=== PATIENT | male | born 1940 ===

== ENCOUNTER 2018-11-09 11:13 | Inpatient (IN) | payer MEDICARE, MEDICAID ==
[2018-11-09 12:40] LABS: BASO % 0.3 % (0.0-2.0); EOS % 0.4 % (0.0-4.0); HEMOGLOBIN 14.8 g/dL (12.0-18.0); LYMPH # 0.3 K/uL (1.0-4.3); LYMPH % 4.9 % (20.0-40.0); MEAN CELL VOLUME 94.5 fL (80.0-94.0); MEAN CORPUSCULAR HEMOGLOBIN 32.2 pg (27.0-31.0); MEAN CORPUSCULAR HGB CONC 34.1 g/dL (33.0-37.0); MEAN PLATELET VOLUME 9.1 fL (7.2-11.7); MONO # 0.4 K/uL (0.0-0.8); MONO % 6.6 % (0.0-10.0); NEUT # 5.5 K/uL (1.8-7.0); NEUT % 87.8 % (50.0-75.0); NRBC % 0.1 % (0.0-2.0); PLATELET COUNT 169 K/uL (130-400); RBC 4.58 Mil/uL (4.40-5.90); RED CELL DISTRIBUTION WIDTH 13.8 % (11.5-14.5); WHITE BLOOD COUNT 6.2 K/uL (4.8-10.8)
--- NOTE | 2018-11-09 12:47 | C.PDOC ---
History Of Present Illness 78 y/o male brought in by EMS accompanied by for evaluation of vomiting, dizziness, and abdominal pain that started this morning. Patient notes the vomitus has been green-colored, denies hematemesis. Otherwise he denies any diar durga, rectal bleeding, or urinary symptoms. states the patient appears somewhat pale and seems confused, though patient denies feeling confused. She denies jaundice. Both patient and are poor historians. On arrival to the ED patient is febrile with temp of 102. Patient noted to be coughing on exam. He denies any congestion, rhinorrhea, or other URI symptoms. Time Seen by Provider: 11/09/18 11:32 Chief Complaint (Nursing): Abdominal Pain Past Medical History Vital Signs: Last Vital Signs Temp 102.1 F H 11/09/18 11:28 Pulse 73 11/09/18 11:28 Resp 18 11/09/18 11:28 BP 142/61 11/09/18 11:28 Pulse Ox 91 L 11/09/18 11:28 Family History: States: No Known Family Hx - Social History Hx Alcohol Use: No Hx Substance Use: No - Immunization History Hx Tetanus Toxoid Vaccination: No Hx Influenza Vaccination: No Hx Pneumococcal Vaccination: No Review Of Systems Except As Marked, All Systems Reviewed And Found Negative. Constitutional: Positive for: Fever ENT: Negative for: Nose Congestion, Throat Pain Cardiovascular: Negative for: Chest Pain, Palpitations Respiratory: Positive for: Cough. Negative for: Shortness of Breath Gastrointestinal: Positive for: Nausea, Vomiting, Abdominal Pain. Negative for: Diarrhea, Hematemesis Genitourinary: Negative for: Dysuria, Hematuria Skin: Positive for: Other (Skin appears somewhat jaundiced though at bedside reports this is normal for patient). Negative for: Rash Neurological: Positive for: Dizziness. Negative for: Weakness, Numbness, Altered Mental Status, Headache Physical Exam - Physical Exam Appears: Non-toxic, No Acute Distress Skin: Warm, Jaundice (Skin appears somewhat jaundiced though at bedside reports this is normal for patient) Head: Atraumatic, Normacephalic Eye(s): bilateral: Normal Inspection, PERRL, EOMI Neck: Normal ROM Chest: Symmetrical Cardiovascular: Rhythm Regular, No Murmur Respiratory: No Accessory Muscle Use, Rhonchi (diffusely), No Wheezing, Other (no respiratory distress) Gastrointestinal/Abdominal: Bowel Sounds (normal), Soft, No Tenderness, No Guarding, No Rebound Back: Normal Inspection, No Vertebral Tenderness Extremity: Bilateral: Atraumatic, Normal ROM Pulses: Left Dorsalis Pedis: Normal, Right Dorsalis Pedis: Normal Neurological/Psych: Oriented x3, Normal Cognition, Normal Cranial Nerves, Other (No neuro deficit, Speaking in full sentences) ED Course And Treatment - Laboratory Results Result Diagrams: 11/12/18 07:04 11/12/18 07:04 O2 Sat by Pulse Oximetry: 91 (on RA) Pulse Ox Interpretation: Abnormal - Radiology CXR: Interpreted by Me CXR Interpretation: Yes: Infiltrates (Increased congestion vs infiltrate in the RLL) - CT Scan/US CT Abd/Pelvis Other Rad Studies (CT/US): Read By Radiologist, Radiology Report Reviewed CT/US Interpretation: Accession No. : [id number]. Patient Name / ID : GEORGIA ROBLES / [id number]. Exam Date : 11/09/2018 15:29:29 ( Approved ). Study Comment : Sex / Age : M / 78Y. Creator : Vaishali Myles. Dictator : Lincoln Roman MD. Animal Stunner : Head Athletic Trainer/Strength Coach : Lincoln Roman MD. Approver2 : Report Date : 11/09/2018 15:51:38. My Comment : . Date of service: 11/09/2018. PROCEDURE: CT Abdomen and Pelvis . HISTORY: Diffuse abdominal pain, vomiting, fever. COMPARISON: None. TECHNIQUE: Contiguous helical/transaxial sections of the abdomen pelvis performed following intravenous injection of approximately 100 cc Visipaque 320 contrast material. Additional 2D sagittal and coronal reformats generated. Note that the patient felt ill following injection and rapid response team apparently called and tended to-stabilized. The study is is limited in terms of contrast opacification where most of the intravascular contrast enhancement has washed out. Kidneys demonstrate excretory phase of excretion.. Radiation dose: Total exam DLP = 438.4 mGy-cm. This CT exam was performed using one or more of the following dose reduction techniques: Automated exposure control, adjustment of the mA and/or kV according to patient size, and/or use of iterative re construction technique. FINDINGS: LOWER THORAX: There are mild pleural thickening changes or scarring both lung bases along with mild dependent/passive type atelectasis. Linear areas of scarring are also felt to be present in the lung bases including the middle lobe and lingular regions. Mild thickening of the inferior margin of the left major fissure. No evidence of basilar pneumothorax. Heart size is within range of normal. No significant pericardial effusion. Questionable trace effusion versus minimal pericardial granulation tissue. There is a small hiatal hernia with slight wall thickening of distal esophagus likely due to protrusion of gastric mucosa. Possibility of esophagit is not excluded. LIVER: Liver exhibits normal size. No obvious hepatic mass collection or calcification. GALLBLADDER AND BILE DUCTS: Cholelithiasis. PANCREAS: Pancreas appears slightly atrophic and fatty replaced. No obvious pancreatic masses collections or calcifications. No significant pancreatic ductal dilatation identified. SPLEEN: Unremarkable. No splenomegaly. ADRENALS: Mildly enlarged hypoplastic appearing adrenal glands. KIDNEYS AND URETERS: Demonstrate expiratory phase of excretion with contrast enhancement of the calices and renal pelves as well as ureters... Contrast is rather dense due to excretion resulting in streak and beam hardening artifact obscuring fine soft tissue detail. No definitive evidence of obvious renal mass or collection. No evidence of obstructing nephrolithiasis so far as can be determined. BLADDER: Urinary bladder is incompletely distended which in part accounts for thick- walled appearance. Muscular hypertrophy presumably contributes. Correlation with urinalysis to exclude cystitis or other intrinsic/invasive wall lesion. REPRODUCTIVE: Prostate gland appears enlarged measuring approximately 4.8 cm in transverse dimension. Findings likely due to BPH however correlation with PSA recommended. APPENDIX: Unremarkable. BOWEL: Evaluation of the bowel is limited due to the lack of oral contrast material. Stomach is incompletely distended with thick-walled appearance. Visualized loops of small bowel exhibit normal contour and caliber. No evidence of acute mechanical small bowel obstruction. Stool and air seen throughout the large bowel. There are scattered multiple colonic diverticula seen along the descending and sigmoid colon. No definitive radiographic evidence of acute diverticulitis. PERITONEUM: Unremarkable. No fluid collection. No free air. LYMPH NODES: Unremarkable. No enlarged lymph nodes. VASCULATURE: Unremarkable. No aortic aneurysm. Minimal aortic atherosclerotic calcification or mural plaque present. BONES: Mild multilevel degenerative spondylosis of the lower thoracic and lumbar spine. No acute compression fractures no retropulsed fragments. OTHER FINDINGS: None. IMPRESSION: Limited study due to delayed scan time following injection as patient became ill immediately following injection and rapid response team was called and tended to -stabilized patient. There appears to be some mild pleural thickening and chronic scarring changes both lung bases as above. Cholelithiasis. Diverticulosis without radiographic evidence of acute diverticulitis. Mildly enlarged hypoplastic appearing adrenal glands. Medical Decision Making Medical Decision Making: Impression: 78 year old with vomiting, abdominal pain, cough, fever. Temp is 102 on arrival. O2sat 91% on RA. Will give antipyretic and place patient on 2L O2 via nasal cannula. Initial Plan: - VBG - CMP - CK-MB - Lipase - Magnesium - Phosphorous - CBC - PTT/PT - Blood culture - Urine culture - UA - Flu swab - Chest x-ray - IV fluids infusing - 4 mg IV Zofran - 650 mg PO Tylenol 13:05 Labs reviewed, No WBC elevation or left shift. CXR: Increased congestion vs infiltrate in the RLL Will obtain CT Abdomen/Pelvis for further evaluation. CT scan ordered with PO& IV contrast. However, patient vomited the PO contrast. Will can with IV contrast only. 16:00 CT reviewed, report shows no acute findings. Patient continues to actively vomit in the ED. Case discussed with Dr. Montgomery, will admit patient to medical service for intractable vomiting and viral illness. Disposition Counseled Patient/Family Regarding: Studies Performed, Diagnosis - Disposition Disposition: HOSPITALIZED Disposition Time: 17:21 Condition: STABLE - Clinical Impression Clinical Impression: Intractable vomiting, Viral illness - PA / CONCRETE BLOCK LAYER / Resident Statement MD/DO has reviewed & agrees with the documentation as recorded. - Scribe Statement The provider has reviewed the documentation as recorded by the Elizabeth Ceballos All medical record entries made by the Umeshibkarly were at my direction and personally dictated by me. I have reviewed the chart and agree that the record accurately reflects my personal performance of the history, physical exam, medical decision making, and the department course for this patient. I have also personally directed, reviewed, and agree with the discharge instructions and disposition.
[2018-11-09 12:50] LABS: ALB/GLOB RATIO 1.4 (1.0-2.1); ALBUMIN 4.5 g/dL (3.5-5.0); ALT/SGPT 19 U/L (21-72); AST/SGOT 25 U/L (17-59); BLOOD UREA NITROGEN 14 mg/dL (9-20); CALCIUM 9.1 mg/dl (8.6-10.4); GFR NON-AFRICAN AMERICAN > 60; LIPASE 64 U/L (23-300)
[2018-11-09 12:52] LABS: INR 1.2; PROTHROMBIN TIME 12.6 SECONDS (9.7-12.2)
[2018-11-09 12:59] LABS: CK-MB 0.39 ng/mL (0.0-3.38)
[2018-11-09 13:00] LABS: VENOUS BLOOD GAS BASE EXCESS 1.7 mmol/L (0.0-2.0); VENOUS BLOOD GAS PCO2 42 mmHg (40-60); VENOUS BLOOD GAS PO2 30 mm/Hg (30-55); VENOUS BLOOD PH 7.41 (7.32-7.43)
[2018-11-09 13:09] LABS: BANDS 2 % (0-2); BASOPHIL 1 % (0-2); LYMPHOCYTE 11 % (20-40); MONOCYTE 6 % (0-10); NEUTROPHIL 80 % (50-75); PLATELET ESTIMATE NORMAL (NORMAL); TOTAL CELLS COUNTED 100
[2018-11-09] MEDS ORDERED: Sodium Chloride 0.9% 500 ML IV ONE (13:14)
--- NOTE | 2018-11-09 13:17 | RAD ---
Date of service: 11/09/2018 PROCEDURE: CHEST RADIOGRAPH, 1 VIEW HISTORY: SOB, fever, cough COMPARISON: None available. FINDINGS: LUNGS: The lungs are well inflated. There is mild pulmonary venous congestion. PLEURA: No pneumothorax or pleural effusion. CARDIOVASCULAR: There is mild cardiomegaly. No aortic atherosclerotic calcifications present. OSSEOUS STRUCTURES: Within normal limits for the patient's age. VISUALIZED UPPER ABDOMEN: Normal. OTHER FINDINGS: None. IMPRESSION: No active pulmonary disease. Mild cardiomegaly and pulmonary venous congestion.
[2018-11-09] MEDS ORDERED: Sodium Chloride 0.9% 1,000 ML ONE (13:20)
[2018-11-09 14:01] LABS: URINE BILIRUBIN NEGATIVE (NEGATIVE); URINE BLOOD NEGATIVE (NEGATIVE); URINE CLARITY Clear (Clear); URINE COLOR Yellow (YELLOW); URINE GLUCOSE (UA) NORMAL (Normal); URINE LEUKOCYTE ESTERASE NEG Leu/uL (Negative); URINE PROTEIN 1+ mg/dL (NEGATIVE); URINE UROBILINOGEN NORMAL mg/dL (0.2-1.0)
--- NOTE | 2018-11-09 15:54 | PCM.RRT ---
SENIOR UNIX ADMINISTRATOR Nurses Assessment - Situation Date: 11/09/18 Time SENIOR UNIX ADMINISTRATOR was called: 15:32 SENIOR UNIX ADMINISTRATOR Responder Arrival Time:: 15:35 SENIOR UNIX ADMINISTRATOR Location:: CT scan Room Number: 2 SENIOR UNIX ADMINISTRATOR Called By: RN - IV IV Inserted during SENIOR UNIX ADMINISTRATOR?: No - Respiratory SENIOR UNIX ADMINISTRATOR Delivery Method: Nasal Cannula @L/min (2L) - Recommendations 5) SENIOR UNIX ADMINISTRATOR Level of Care Recommendations: Remain in current setting I.Reason for SENIOR UNIX ADMINISTRATOR - A) Acute Change in Patient: (Select all that apply): Staff member or family is worried about patient Subjective: Rapid response was called to cat scan room 2 at 15:32 to a patient having a possible witnessed seizure activity. Patient was sent from ED for an abdominal CT with contrast. RN reports the patient received IV contrast a few minutes prior to the episode. At the time, patient was feeling nauseous and feeling warm . Patient's seizure like activity lasted about 5 seconds and it resolved without medical intervention. Patient is currently resting on CAT scan machine in no distress, but does complains of mild nausea. He denies having tongue biting, fever, chills headache, shortness of breath, chest pain, urinary or fecal incontinence. Vitals at the end of the event: 145/59, 63bpm, O2 94% at 2L NC - Neurological Status (Select all that apply): Alert, Responsive, Oriented, Verbal, Follows Commands - Respiratory Oxygen Delivery Method: Nasal Cannula @L/min - Constitutional Appears: Well, No Acute Distress - Head Head Exam: ATRAUMATIC, NORMAL INSPECTION - Eyes Eye Exam: absent: Normal appearance (right eye cataract) - Respiratory Exam Respiratory Exam: Clear to Ausculation Bilateral, NORMAL BREATHING PATTERN. absent: Wheezes, Respiratory Distress - Cardiovascular Exam Cardiovascular Exam: REGULAR RHYTHM, +S1, +S2 - GI/Abdominal Exam GI & Abdominal Exam: Soft, Normal Bowel Sounds Additional comments: no signs of tongue biting in oral cavity, no erythema appreciated in the pharynx - Neurological Exam Neurological Exam: Alert, Awake, Oriented x3 - Extremities Exam Extremities Exam: Full ROM, Normal Capillary Refill, Normal Inspection Plan - Assessment of Findings&Treatment Plan Remain in current setting complete CT scan Return to ED for further management
[2018-11-09] MEDS ORDERED: Piperacillin/Tazobact 3.375 gm 100 ML IV STA (16:14)
[2018-11-09] MEDS ORDERED: Vancomycin 1 GM 1 GM/250 ML BAG IV STA (16:14)
[2018-11-09 16:34] LABS: BASO % 0.3 % (0.0-2.0); EOS % 0.1 % (0.0-4.0); HEMOGLOBIN 14.2 g/dL (12.0-18.0); LYMPH # 0.5 K/uL (1.0-4.3); LYMPH % 6.1 % (20.0-40.0); MEAN CELL VOLUME 93.6 fL (80.0-94.0); MEAN CORPUSCULAR HEMOGLOBIN 32.1 pg (27.0-31.0); MEAN CORPUSCULAR HGB CONC 34.3 g/dL (33.0-37.0); MEAN PLATELET VOLUME 8.6 fL (7.2-11.7); MONO # 0.7 K/uL (0.0-0.8); MONO % 9.2 % (0.0-10.0); NEUT # 6.4 K/uL (1.8-7.0); NEUT % 84.3 % (50.0-75.0); RBC 4.41 Mil/uL (4.40-5.90); RED CELL DISTRIBUTION WIDTH 14.2 % (11.5-14.5); WHITE BLOOD COUNT 7.6 K/uL (4.8-10.8)
--- NOTE | 2018-11-09 16:34 | CT ---
Date of service: 11/09/2018 PROCEDURE: CT Abdomen and Pelvis . HISTORY: Diffuse abdominal pain, vomiting, fever COMPARISON: None. TECHNIQUE: Contiguous helical/transaxial sections of the abdomen pelvis performed following intravenous injection of approximately 100 cc Visipaque 320 contrast material. Additional 2D sagittal and coronal reformats generated. Note that the patient felt ill following injection and rapid response team apparently called and tended to-stabilized. The study is is limited in terms of contrast opacification where most of the intravascular contrast enhancement has washed out. Kidneys demonstrate excretory phase of excretion.. Radiation dose: Total exam DLP = 438.4 mGy-cm. This CT exam was performed using one or more of the following dose reduction techniques: Automated exposure control, adjustment of the mA and/or kV according to patient size, and/or use of iterative reconstruction technique. FINDINGS: LOWER THORAX: There are mild pleural thickening changes or scarring both lung bases along with mild dependent/passive type atelectasis. Linear areas of scarring are also felt to be present in the lung bases including the middle lobe and lingular regions. Mild thickening of the inferior margin of the left major fissure. No evidence of basilar pneumothorax. Heart size is within range of normal. No significant pericardial effusion. Questionable trace effusion versus minimal pericardial granulation tissue. There is a small hiatal hernia with slight wall thickening of distal esophagus likely due to protrusion of gastric mucosa. Possibility of esophagitis not excluded. LIVER: Liver exhibits normal size. No obvious hepatic mass collection or calcification. GALLBLADDER AND BILE DUCTS: Cholelithiasis. PANCREAS: Pancreas appears slightly atrophic and fatty replaced. No obvious pancreatic masses collections or calcifications. No significant pancreatic ductal dilatation identified. SPLEEN: Unremarkable. No splenomegaly. ADRENALS: Mildly enlarged hypoplastic appearing adrenal glands. KIDNEYS AND URETERS: Demonstrate expiratory phase of excretion with contrast enhancement of the calices and renal pelves as well as ureters... Contrast is rather dense due to excretion resulting in streak and beam hardening artifact obscuring fine soft tissue detail. No definitive evidence of obvious renal mass or collection. No evidence of obstructing nephrolithiasis so far as can be determined. BLADDER: Urinary bladder is incompletely distended which in part accounts for thick-walled appearance. Muscular hypertrophy presumably contributes. Correlation with urinalysis to exclude cystitis or other intrinsic/invasive wall lesion. REPRODUCTIVE: Prostate gland appears enlarged measuring approximately 4.8 cm in transverse dimension. Findings likely due to BPH however correlation with PSA recommended. APPENDIX: Unremarkable. BOWEL: Evaluation of the bowel is limited due to the lack of oral contrast material. Stomach is incompletely distended with thick-walled appearance. Visualized loops of small bowel exhibit normal contour and caliber. No evidence of acute mechanical small bowel obstruction. Stool and air seen throughout the large bowel. There are scattered multiple colonic diverticula seen along the descending and sigmoid colon. No definitive radiographic evidence of acute diverticulitis. PERITONEUM: Unremarkable. No fluid collection. No free air. LYMPH NODES: Unremarkable. No enlarged lymph nodes. VASCULATURE: Unremarkable. No aortic aneurysm. Minimal aortic atherosclerotic calcification or mural plaque present. BONES: Mild multilevel degenerative spondylosis of the lower thoracic and lumbar spine. No acute compression fractures no retropulsed fragments. OTHER FINDINGS: None. IMPRESSION: Limited study due to delayed scan time following injection as patient became ill immediately following injection and rapid response team was called and tended to -stabilized patient. There appears to be some mild pleural thickening and chronic scarring changes both lung bases as above. Cholelithiasis. Diverticulosis without radiographic evidence of acute diverticulitis. Mildly enlarged hypoplastic appearing adrenal glands.
[2018-11-09 16:35] LABS: VENOUS BLOOD GAS BASE EXCESS 1.3 mmol/L (0.0-2.0); VENOUS BLOOD GAS PCO2 36 mmHg (40-60); VENOUS BLOOD GAS PO2 67 mm/Hg (30-55); VENOUS BLOOD PH 7.45 (7.32-7.43)
[2018-11-09] MEDS ORDERED: Piperacillin/Tazobact 3.375 gm 100 ML IVPB ONE (17:07)
[2018-11-09] MEDS ORDERED: Vancomycin 1 GM 1 GM/250 ML BAG IVPB ONE ×2 (17:47→17:50)
[2018-11-09 21:27] VITALS: RESP 20
[2018-11-09] MEDS ORDERED: Albuterol-Ipratrop 3 mg / 0.5 (3 ml) UD INH PRN (21:36)
[2018-11-09] MEDS: Dextrose 5%/0.45% NS 1,000 ML IV SCH (22:07)
[2018-11-10] MEDS ORDERED: Piperacill/Tazo 3.375gm in Dex 3.375 GM/50 ML BAG IVPB SCH
[2018-11-10] MEDS: Piperacill/Tazo 3.375gm in Dex 3.375 GM/50 ML BAG IVPB SCH ×4 (00:49→21:06)
[2018-11-10] MEDS: guaiFENesin DM 100 mg-10 mg/5 ml UD PO PRN ×2 (05:28→16:56)
[2018-11-10 07:26] LABS: BASO % 0.3 % (0.0-2.0); EOS % 0.2 % (0.0-4.0); HEMOGLOBIN 14.3 g/dL (12.0-18.0); LYMPH # 0.9 K/uL (1.0-4.3); LYMPH % 16.4 % (20.0-40.0); MEAN CELL VOLUME 93.8 fL (80.0-94.0); MEAN CORPUSCULAR HEMOGLOBIN 32.9 pg (27.0-31.0); MEAN CORPUSCULAR HGB CONC 35.1 g/dL (33.0-37.0); MONO # 0.6 K/uL (0.0-0.8); MONO % 10.5 % (0.0-10.0); NEUT # 3.9 K/uL (1.8-7.0); NEUT % 72.6 % (50.0-75.0); RBC 4.34 Mil/uL (4.40-5.90); RED CELL DISTRIBUTION WIDTH 14.3 % (11.5-14.5); WHITE BLOOD COUNT 5.4 K/uL (4.8-10.8)
[2018-11-10 07:54] LABS: ALB/GLOB RATIO 1.4 (1.0-2.1); ALT/SGPT 27 U/L (21-72); AST/SGOT 40 U/L (17-59); BLOOD UREA NITROGEN 13 mg/dL (9-20); CALCIUM 8.3 mg/dl (8.6-10.4); GFR NON-AFRICAN AMERICAN 59
[2018-11-10] MEDS: Dextrose 5%/0.45% NS 1,000 ML IV SCH ×2 (07:59→17:01)
[2018-11-10] MEDS: Enoxaparin 40 mg Syringe SC SCH (09:21)
[2018-11-11] MEDS: guaiFENesin DM 100 mg-10 mg/5 ml UD PO PRN
[2018-11-11] MEDS: Dextrose 5%/0.45% NS 1,000 ML IV SCH ×3 (03:46→23:27)
[2018-11-11] MEDS: Piperacill/Tazo 3.375gm in Dex 3.375 GM/50 ML BAG IVPB SCH ×3 (05:45→21:45)
[2018-11-11 07:39] LABS: BASO % 0.2 % (0.0-2.0); EOS % 0.3 % (0.0-4.0); HEMOGLOBIN 13.6 g/dL (12.0-18.0); LYMPH # 0.9 K/uL (1.0-4.3); LYMPH % 19.1 % (20.0-40.0); MEAN CELL VOLUME 92.8 fL (80.0-94.0); MEAN CORPUSCULAR HEMOGLOBIN 33.1 pg (27.0-31.0); MEAN CORPUSCULAR HGB CONC 35.6 g/dL (33.0-37.0); MEAN PLATELET VOLUME 9.2 fL (7.2-11.7); MONO # 0.5 K/uL (0.0-0.8); MONO % 11.1 % (0.0-10.0); NEUT # 3.4 K/uL (1.8-7.0); NEUT % 69.3 % (50.0-75.0); RBC 4.12 Mil/uL (4.40-5.90); RED CELL DISTRIBUTION WIDTH 13.9 % (11.5-14.5); WHITE BLOOD COUNT 4.9 K/uL (4.8-10.8)
[2018-11-11 08:00] LABS: ALB/GLOB RATIO 1.2 (1.0-2.1); ALBUMIN 3.7 g/dL (3.5-5.0); ALT/SGPT 22 U/L (21-72); AST/SGOT 50 U/L (17-59); BLOOD UREA NITROGEN 8 mg/dL (9-20); CALCIUM 8.1 mg/dl (8.6-10.4); GFR NON-AFRICAN AMERICAN > 60
[2018-11-11] MEDS: Enoxaparin 40 mg Syringe SC SCH (09:09)
--- NOTE | 2018-11-11 16:08 | CP.PCM.CON ---
History of Present Illness - History of Present Illness History of Present Illness: 78 y/o male brought in by EMS accompanied by for evaluation of vomiting, dizziness, and abdominal pain On arrival to the ED patient is febrile with temp of 102. ID consulted for antibiotic management patient is awake alert abd pain less worse when coughing temps less today Review of Systems - Constitutional Constitutional: As Per HPI, Chills, Fever - EENT Eyes: absent: As Per HPI, Blind Spots, Blurred Vision, Change in Vision, Decreased Night Vision, Diplopia, Discharge, Dry Eye, Exophthalmos, Floaters, I rritation, Itchy Eyes, Loss of Peripheral Vision, Pain, Photophobia, Requires Corrective Lenses, Sees Flashes, Spots in Vision, Tunnel Vision, Other Visual Disturbances, Loss of Vision, Other Ears: absent: As Per HPI, Decreased Hearing, Ear Discharge, Ear Pain, Tinnitus, Abnormal Hearing, Disequilibrium, Dizziness, Other Nose/Mouth/Throat: absent: As Per HPI, Epistaxis, Nasal Congestion, Nasal Discharge, Nasal Obstruction, Nasal Trauma, Nose Pain, Post Nasal Drip, Sinus Pain, Sinus Pressure, Bleeding Gums, Change in Voice, Dental Pain, Dry Mouth, Dysphagia, Halitosis, Hoarsness, Lip Swelling, Mouth Lesions, Mouth Pain, Odynophagia, Sore Throat, Throat Swelling, Tongue Swelling, Facial Pain, Neck Pain, Neck Mass, Other - Cardiovascular Cardiovascular: absent: As Per HPI, Acrocyanosis, Chest Pain, Chest Pain at Rest, Chest Pain with Activity, Claudication, Diaphoresis, Dyspnea, Dyspnea on Exertion, Edema, Irregular Heart Rhythm, Pain Radiating to Arm/Neck/Jaw, Leg Edema, Leg Ulcers, Lightheadedness, Orthopnea, Palpitations, Paroxysmal Nocturnal Dyspnea, Pedal Edema, Radiating Pain, Rapid Heart Rate, Slow Heart Rate, Syncope, Other - Respiratory Respiratory: Cough. absent: Hemoptysis - Gastrointestinal Gastrointestinal: As Per HPI, Abdominal Pain - Genitourinary Genitourinary: absent: As Per HPI, Change in Urinary Stream, Difficulty Urinating, Dysuria, Flank Pain, Hematuria, Pyuria, Nocturia, Urinary Incontinence, Urinary Frequency, Urinary Hesitance, Urinary Urgency, Voiding Freq/Small Amts, Freq UTI, Hx Renal/Bladder Calculi, Hx /Renal Surgery, Bladder Distension, Other - Musculoskeletal Musculoskeletal: absent: As Per HPI, Abnormal Gait, Arthralgias, Atrophy, Back Pain, Deformity, Joint Swelling, Limited Range of Motion, Loss of Height, Muscle Cramps, Muscle Weakness, Myalgias, Neck Pain, Numbness, Radiating Pain into Li mb, Stiffness, Tingling, Other - Integumentary Integumentary: absent: As Per HPI, Acne, Alopecia, Bleeding Lesions, Change in Hair, Change in Nails, Change in Pigmentation, Changing Lesions, Dry Skin, Erythema, Furuncle, Hirsutism, Lesions, New Lesions, Non-Healing Lesions, Photosensitivity, Pruritus, Rash, Skin Pain, Skin Ulcer, Sores, Striae, Swelling, Unusual Bruising, Wounds, Jaundice, Other - Neurological Neurological: absent: As Per HPI, Abnormal Gait, Abnormal Hearing, Abnormal Movements, Abnormal Speech, Behavioral Changes, Burning Sensations, Confusion, Convulsions, Disequilibrium, Dizziness, Numbness, Focal Weakness, Frequent Falls, Headaches, Lack of Coordination, Loss of Vision, Memory Loss, Paresthes ias, Radicular Pain, Restless Legs, Sensory Deficit, Syncope, Tingling, Tremor, Vertigo, Weakness, Other Visual Disturbances, Other - Psychiatric Psychiatric: absent: As Per HPI, Abnormal Sleep Pattern, Anhedonia, Anxiety, Auditory Hallucinations, Behavioral Changes, Change in Appetite, Change in Libido, Confusion, Depression, Difficulty Concentrating, Hallucinations, Homicidal Ideation, Hopelessness, Irritability, Memory Loss, Mood Swings, Panic Attacks, Paranoia, Suicidal Ideation, Visual Hallucinations, Tactile Hallucinations, Other - Endocrine Endocrine: absent: As Per HPI, Change in Body Appearance, Change in Libido, Cold Intolorance, Deepening of Voice, Excessive Sweating, Fatigue, Flushing, Heat Intolorance, Increase in Ring/Shoe/Hat Size, Palpitations, Polydipsia, Polyphagia, Polyuria, Other - Hematologic/Lymphatic Hematologic: absent: As Per HPI, Easy Bleeding, Easy Bruising, Lymphadenopathy, Other Past Patient History - Past Medical History & Family History Past Medical History?: Yes - Past Social History Smoking Status: Never Smoked - CARDIAC Hx Hypotension: Yes - HEENT Hx Blind: Yes (Rt. eye) - MUSCULOSKELETAL/RHEUMATOLOGICAL Hx Falls: Yes - PSYCHIATRIC Hx Substance Use: No - SURGICAL HISTORY Hx Surgeries: No - ANESTHESIA Hx Anesthesia: No Hx Anesthesia Reactions: No Meds Allergies/Adverse Reactions: Allergies Allergy/AdvReac Type Severity Reaction Status Date / Time No Known Allergies Allergy Verified 11/09/18 12:11 - Medications Medications: Current Medications Acetaminophen (Tylenol 325mg Tab) 650 mg PO Q4 PRN PRN Reason: Fever >100.4 F Last Admin: 11/10/18 15:14 Dose: 650 mg Albuterol/Ipratropium (Duoneb 3 Mg/0.5 Mg (3 Ml) Ud) 3 ml INH RQ4 PRN PRN Reason: Cough and congestion Enoxaparin Sodium (Lovenox) 40 mg SC DAILY [facility] Last Admin: 11/11/18 09:09 Dose: 40 mg Guaifenesin/Dextromethorphan (Robitussin Dm) 5 ml PO Q4H PRN PRN Reason: Cough Last Admin: 11/11/18 00:00 Dose: 5 ml Dextrose/Sodium Chloride (Dextrose 5%/0.45% Ns 1000 Ml) 1,000 mls @ 100 mls/hr IV .Q10H [facility] Last Admin: 11/11/18 13:15 Dose: Not Given Piperacillin Sod/Tazobactam Sod (Zosyn 3.375 Gm Iv Premix) 3.375 gm in 50 mls @ 100 mls/hr IVPB Q8 [facility]; Protocol Last Admin: 11/11/18 14:17 Dose: 100 mls/hr Ondansetron HCl (Zofran Inj) 4 mg IVP Q6 PRN PRN Reason: Nausea/Vomiting Pantoprazole Sodium (Protonix Inj) 40 mg IVP DAILY [facility] Last Admin: 11/11/18 09:09 Dose: 40 mg Pneumococcal Polyvalent Vaccine (Pneumovax 23 Vaccine) 0.5 ml IM .ONCE ONE Stop: 11/12/18 10:01 Physical Exam - Constitutional Appears: Non-toxic, No Acute Distress, Chronically Ill - Head Exam Head Exam: NORMOCEPHALIC - Eye Exam Eye Exam: absent: Scleral icterus - ENT Exam ENT Exam: Mucous Membranes Dry, Normal External Ear Exam - Neck Exam Neck exam: Negative for: Lymphadenopathy - Respiratory Exam Respiratory Exam: Decreased Breath Sounds, Rhonchi - Cardiovascular Exam Cardiovascular Exam: REGULAR RHYTHM, +S1, +S2 - GI/Abdominal Exam GI & Abdominal Exam: Diminished Bowel Sounds, Soft. absent: Tenderness - Rectal Exam Rectal Exam: Deferred - Exam Exam: NORMAL INSPECTION - Extremities Exam Extremities exam: Positive for: pedal pulses present. Negative for: calf tenderness, pedal edema, tenderness - Back Exam Back exam: absent: CVA tenderness (L), CVA tenderness (R), paraspinal tenderness - Neurological Exam Neurological exam: Alert, CN II-XII Intact, Oriented x3, Reflexes Normal - Psychiatric Exam Psychiatric exam: Normal Mood - Skin Skin Exam: Dry Results - Vital Signs Recent Vital Signs: Last Vital Signs Temp 98.2 F 11/11/18 07:00 Pulse 60 11/11/18 07:00 Resp 20 11/11/18 07:00 BP 149/69 11/11/18 07:00 Pulse Ox 95 11/11/18 07:00 - Labs Result Diagrams: 11/11/18 07:19 11/11/18 07:19 Labs: Laboratory Results - last 24 hr 11/11/18 11/11/18 07:19 07:19 WBC 4.9 RBC 4.12 L Hgb 13.6 Hct 38.2 MCV 92.8 MCH 33.1 H MCHC 35.6 RDW 13.9 Plt Count 149 MPV 9.2 Neut % (Auto) 69.3 Lymph % (Auto) 19.1 L Weston % (Auto) 11.1 H Eos % (Auto) 0.3 Baso % (Auto) 0.2 Neut # (Auto) 3.4 Lymph # (Auto) 0.9 L Weston # (Auto) 0.5 Eos # (Auto) 0.0 Baso # (Auto) 0.0 Sodium 136 Potassium 3.6 Chloride 101 Carbon Dioxide 27 Anion Gap 12 BUN 8 L Creatinine 1.0 Est GFR ( Amer) > 60 Est GFR (Non-Af Amer) > 60 Random Glucose 116 H Calcium 8.1 L Total Bilirubin 0.9 AST 50 ALT 22 Alkaline Phosphatase 58 Total Protein 6.6 Albumin 3.7 Globulin 3.0 Albumin/Globulin Ratio 1.2 Assessment & Plan (1) Acute febrile illness Status: Acute (2) Abdominal pain Status: Acute (3) Fever Status: Acute - Assessment and Plan (Free Text) Assessment: await cultures will repeat flu test cont iv antibiotics
[2018-11-11] MEDS: Metoprolol Succinate 50 mg XL Tab PO SCH (18:46)
[2018-11-12] MEDS: Dextrose 5%/0.45% NS 1,000 ML IV SCH (03:00)
[2018-11-12] MEDS: Piperacill/Tazo 3.375gm in Dex 3.375 GM/50 ML BAG IVPB SCH ×2 (05:23→13:33)
[2018-11-12 07:38] LABS: MONO # 0.5 K/uL (0.0-0.8); NEUT # 2.2 K/uL (1.8-7.0); NEUT % 55.8 % (50.0-75.0); NRBC % 0.1 % (0.0-2.0)
[2018-11-12 07:46] LABS: ALB/GLOB RATIO 1.3 (1.0-2.1); ALBUMIN 3.7 g/dL (3.5-5.0); ALT/SGPT 25 U/L (21-72); AST/SGOT 51 U/L (17-59); BLOOD UREA NITROGEN 6 mg/dL (9-20); CALCIUM 8.3 mg/dl (8.6-10.4); GFR NON-AFRICAN AMERICAN > 60
[2018-11-12 08:04] VITALS: BP 135/82; PULSE 60; TEMP 98.4
[2018-11-12 08:11] LABS: BASO % 0.3 % (0.0-2.0); EOS % 0.5 % (0.0-4.0); HEMOGLOBIN 13.2 g/dL (12.0-18.0); LYMPH # 1.3 K/uL (1.0-4.3); LYMPH % 31.7 % (20.0-40.0); MEAN CELL VOLUME 91.7 fL (80.0-94.0); MEAN CORPUSCULAR HEMOGLOBIN 32.9 pg (27.0-31.0); MEAN CORPUSCULAR HGB CONC 35.9 g/dL (33.0-37.0); MEAN PLATELET VOLUME 8.9 fL (7.2-11.7); MONO % 11.7 % (0.0-10.0); RED CELL DISTRIBUTION WIDTH 13.4 % (11.5-14.5)
--- NOTE | 2018-11-12 08:31 | HP ---
HISTORY OF PRESENT ILLNESS: Mr. Yvon Myles is an 78-year-old male with complaint of nausea and vomiting. The patient came to the ER, advised admission. PHYSICAL EXAMINATION: GENERAL: The patient is awake, alert, and oriented. VITAL SIGNS: Temperature 98 and pulse 90. HEENT: Within normal limits. NECK: Supple. CHEST: Symmetrical. HEART: Regular. ABDOMEN: Soft. EXTREMITIES: No edema. IMPRESSION: The patient suffers from intractable vomiting. The patient is to get bedrest. Supportive care. Joshua Montgomery MD
[2018-11-12] MEDS: Metoprolol Succinate 50 mg XL Tab PO SCH (09:16)
[2018-11-12] MEDS: guaiFENesin DM 100 mg-10 mg/5 ml UD PO PRN (09:16)
[2018-11-12] MEDS: Enoxaparin 40 mg Syringe SC SCH (09:18)
[2018-11-12] MEDS ORDERED: Pneumococcal 23-Valent Vaccine IM ONE (10:00)
--- NOTE | 2018-11-12 12:16 | CP.PCM.PN ---
Subjective - Date & Time of Evaluation Date of Evaluation: 11/12/18 Time of Evaluation: 09:00 - Subjective Subjective: no fever less pain influenZa neg Objective - Vital Signs/Intake and Output Vital Signs (last 24 hours): Temp Pulse Resp BP Pulse Ox 98.4 F 60 20 135/82 96 11/12/18 08:02 11/12/18 08:02 11/12/18 08:02 11/12/18 08:02 11/12/18 08:02 Intake and Output: 11/12/18 11/12/18 06:59 18:59 Intake Total 1150 Balance 1150 - Medications Medications: Current Medications Acetaminophen (Tylenol 325mg Tab) 650 mg PO Q4 PRN PRN Reason: Fever >100.4 F Last Admin: 11/10/18 15:14 Dose: 650 mg Albuterol/Ipratropium (Duoneb 3 Mg/0.5 Mg (3 Ml) Ud) 3 ml INH RQ4 PRN PRN Reason: Cough and congestion Enoxaparin Sodium (Lovenox) 40 mg SC DAILY [facility] Last Admin: 11/12/18 09:18 Dose: 40 mg Guaifenesin/Dextromethorphan (Robitussin Dm) 5 ml PO Q4H PRN PRN Reason: Cough Last Admin: 11/12/18 09:16 Dose: 5 ml Dextrose/Sodium Chloride (Dextrose 5%/0.45% Ns 1000 Ml) 1,000 mls @ 100 mls/hr IV .Q10H [facility] Last Admin: 11/12/18 03:00 Dose: 100 mls/hr Piperacillin Sod/Tazobactam Sod (Zosyn 3.375 Gm Iv Premix) 3.375 gm in 50 mls @ 100 mls/hr IVPB Q8 [facility]; Protocol Last Admin: 11/12/18 05:23 Dose: 100 mls/hr Metoprolol Succinate (Toprol Xl) 50 mg PO DAILY [facility] Last Admin: 11/12/18 09:16 Dose: 50 mg Ondansetron HCl (Zofran Inj) 4 mg IVP Q6 PRN PRN Reason: Nausea/Vomiting Oseltamivir Phosphate (Tamiflu Cap) 75 mg PO BID [facility]; Protocol Stop: 11/16/18 16:13 Last Admin: 11/12/18 09:16 Dose: 75 mg Pantoprazole Sodium (Protonix Inj) 40 mg IVP DAILY [facility] Last Admin: 11/12/18 09:16 Dose: 40 mg - Labs Labs: 11/12/18 07:04 11/12/18 07:04 PT 12.6 SECONDS (9.7-12.2) H 11/09/18 12:32 INR 1.2 11/09/18 12:32 APTT 27 SECONDS (21-34) 11/09/18 12:32 - Constitutional Appears: Non-toxic, Chronically Ill - Head Exam Head Exam: NORMOCEPHALIC - Eye Exam Eye Exam: absent: Scleral icterus - ENT Exam ENT Exam: Mucous Membranes Dry - Neck Exam Neck Exam: absent: Lymphadenopathy - Respiratory Exam Respiratory Exam: Decreased Breath Sounds - Cardiovascular Exam Cardiovascular Exam: REGULAR RHYTHM - GI/Abdominal Exam GI & Abdominal Exam: Distended Assessment and Plan (1) Acute febrile illness Status: Acute (2) Abdominal pain Status: Acute (3) Fever Status: Acute - Assessment and Plan (Free Text) Assessment: d/c isolation
--- NOTE | 2018-11-12 12:54 | CP.PCM.PN ---
Subjective - Date & Time of Evaluation Date of Evaluation: 11/12/18 Time of Evaluation: 12:55 - Subjective Subjective: Progress note. Attending: Dr. Montgomery Pt seen and examined at bedside. no acute distress. Feeling better. no complaints at this time. GI workup in progress. Objective - Vital Signs/Intake and Output Vital Signs (last 24 hours): Temp Pulse Resp BP Pulse Ox 98.4 F 60 20 135/82 96 11/12/18 08:02 11/12/18 08:02 11/12/18 08:02 11/12/18 08:02 11/12/18 08:02 Intake and Output: 11/12/18 11/12/18 06:59 18:59 Intake Total 1150 Balance 1150 - Medications Medications: Current Medications Acetaminophen (Tylenol 325mg Tab) 650 mg PO Q4 PRN PRN Reason: Fever >100.4 F Last Admin: 11/10/18 15:14 Dose: 650 mg Albuterol/Ipratropium (Duoneb 3 Mg/0.5 Mg (3 Ml) Ud) 3 ml INH RQ4 PRN PRN Reason: Cough and congestion Enoxaparin Sodium (Lovenox) 40 mg SC DAILY [facility] Last Admin: 11/12/18 09:18 Dose: 40 mg Guaifenesin/Dextromethorphan (Robitussin Dm) 5 ml PO Q4H PRN PRN Reason: Cough Last Admin: 11/12/18 09:16 Dose: 5 ml Dextrose/Sodium Chloride (Dextrose 5%/0.45% Ns 1000 Ml) 1,000 mls @ 100 mls/hr IV .Q10H [facility] Last Admin: 11/12/18 03:00 Dose: 100 mls/hr Piperacillin Sod/Tazobactam Sod (Zosyn 3.375 Gm Iv Premix) 3.375 gm in 50 mls @ 100 mls/hr IVPB Q8 [facility]; Protocol Last Admin: 11/12/18 05:23 Dose: 100 mls/hr Metoprolol Succinate (Toprol Xl) 50 mg PO DAILY [facility] Last Admin: 11/12/18 09:16 Dose: 50 mg Ondansetron HCl (Zofran Inj) 4 mg IVP Q6 PRN PRN Reason: Nausea/Vomiting Oseltamivir Phosphate (Tamiflu Cap) 75 mg PO BID [facility]; Protocol Stop: 11/16/18 16:13 Last Admin: 11/12/18 09:16 Dose: 75 mg Pantoprazole Sodium (Protonix Inj) 40 mg IVP DAILY [facility] Last Admin: 11/12/18 09:16 Dose: 40 mg - Labs Labs: 11/12/18 07:04 11/12/18 07:04 PT 12.6 SECONDS (9.7-12.2) H 11/09/18 12:32 INR 1.2 11/09/18 12:32 APTT 27 SECONDS (21-34) 11/09/18 12:32 - Constitutional Appears: Non-toxic, No Acute Distress - Head Exam Head Exam: ATRAUMATIC, NORMAL INSPECTION, NORMOCEPHALIC - Eye Exam Eye Exam: EOMI - Neck Exam Neck Exam: Full ROM, Normal Inspection - Respiratory Exam Respiratory Exam: NORMAL BREATHING PATTERN. absent: Respiratory Distress - Cardiovascular Exam Cardiovascular Exam: +S1, +S2 - GI/Abdominal Exam GI & Abdominal Exam: Soft, Normal Bowel Sounds. absent: Tenderness - Extremities Exam Extremities Exam: Full ROM, Normal Inspection - Neurological Exam Neurological Exam: Alert, Awake, CN II-XII Intact - Psychiatric Exam Psychiatric exam: Normal Affect, Normal Mood - Skin Skin Exam: Dry, Intact, Normal Color, Warm Assessment and Plan - Assessment and Plan (Free Text) Assessment: This is a 78 yo male with 1. Nausea and vomiting -GI consult. Dr. Colin. recs appreciated. -tylenol prn -continue duonebs -D5 1/2 NS 100 cc/hr -robitussin prn -zofran prn -abdominal/pelvis CT shows pleural thickening, cholelithiasis, diverticulosis, enlarged prostate 2. Hx of CAD/HTN -continue metoprolol succinate 3. flu like symptoms -rapid flu and strep negative -continue tamiflu -ID consult. Dr. Snyder. recs appreciated. 4. hypokalemia -repleted with IV potassium -follow am labs 5. GI/DVT ppx -protonix 40 daily -lovenox [address] Montgomery.
--- NOTE | 2018-11-12 16:59 | PN ---
DATE: 11/12/2018 LOCATION: 350, bed B SUBJECTIVE: This is a 78-year-old male seen and examined in rounds without significant clinical changes or reported active bleeding so far this morning with most recently done CAT scan of the abdomen and pelvis, official report is seen, incomplete but with evidence of cholelithiasis and diverticulosis without diverticulitis. Today's lab results show normal CBC with white blood cells of 4, potassium 3.3, BUN 6, blood glucose level 115, calcium 8.3. PHYSICAL EXAMINATION: GENERAL: A 78-year-old male. VITAL SIGNS: Afebrile with pulse of 62, respiratory rate 20-22, blood pressure 140/84. HEENT: Showed pale dry mucoid membrane. Nonicteric sclerae. LUNGS: Few scattered crepitation. Decreased air entry at bases. HEART: Positive S1 and S2. ABDOMEN: Soft with mild generalized tenderness. No mass or organomegaly, no rebound tenderness or guarding. EXTREMITIES: Without significant clubbing, cyanosis or edema. IMPRESSION: 1. Re-exacerbation of peptic ulcer disease with episodes of nausea and vomiting. 2. Diverticulosis by radiology study results. 3. Cholelithiasis by radiology study results without evidence of acute cholecystitis clinically. 4. Electrolyte imbalance. SUGGESTIONS: 1. Agree with your plan. 2. Repeat chest x-ray for possible aspiration pneumonia. 3. Upper endoscopy to rule out gastric versus duodenal ulcer. 4. Further recommendation to follow. Jannie Ricks MD
[2018-11-14 19:36] VITALS: O2SAT 91
--- NOTE | 2018-11-18 04:31 | CON ---
DATE: 11/11/2018I was called for GI consultation by the admitting medical team. The patient is seen and fully examined on 11/11/2018 as requested by the admitting medical staff. The entire chart is reviewed including, but not limited to the most recent lab and radiology study results, current and the previous medication list, current and the previous medical events. Case discussed with the staff at length at the time of my GI consultation. A short handwritten consultation sheet left in the chart on 11/11/2018 immediately after my physical examination and GI consultation. Case discussed with all the telecom sales consultant and the staff at length. HISTORY OF PRESENT ILLNESS: This is a 78-year-old male who was admitted to the hospital initially through the emergency room due to recurrent episodes of nausea, dizziness, vomiting, dyspepsia with diffuse abdominal pain started few hours before he was admitted to the hospital without reported chest pain, palpitation, or significant shortness of breath. No reported active GI bleeding. The patient reported low-grade temperatures. PAST MEDICAL HISTORY: Including hypertension, peptic ulcer disease, but not limited to . SOCIAL HISTORY: Denied any recent history of cigarette smoking or alcohol intake. CURRENT MEDICATIONS: Post admission medication list reviewed. ALLERGIES TO MEDICATIONS: UNCLEAR. LABORATORY DATA: Initial blood workup at the time of the admission showed normal CBC, but increased blood glucose level to 141. At the time of the admission, the patient had abdominal and pelvic CAT scan. Official report is seen indicative of diverticulosis without diverticulitis as well as cholelithiasis. PHYSICAL EXAMINATION: GENERAL: A 78-year-old male, seen in association with and accompanied with a [place] spoken staff from the floor. VITAL SIGNS: Temperature of 100, pulse 70, respiratory rate 20-22, blood pressure 136/74. HEENT: Showed pale dry oral mucous membrane. Nonicteric sclerae. LUNGS: Few scattered crepitation. Decreased air entry at bases. HEART: Positive S1 and S2. ABDOMEN: Soft with mild localized tenderness. LYMPH NODES: No lymphadenitis or lymphadenopathy. EXTREMITIES: Without significant edema, clubbing, or cyanosis. NEUROLOGIC: No reported new neurological deficits, sensory or motor. IMPRESSION: 1. Diverticulosis, acute diverticulitis most likely. 2. Re-exacerbation of peptic ulcer disease. 3. Poorly controlled diabetes mellitus with possible diabetic gastroparesis. 4. Cholelithiasis with probable early stage of acute cholecystitis. SUGGESTIONS: 1. Agree with your plan. 2. Reglan IV. 3. Proton pump inhibitors. 4. Stool for occult blood. 5. Cancer markers including CEA. 6. Serum lipase, amylase level. 7. Flagyl IV with n.p.o. 8. Further recommendation to follow. 9. No aggressive GI workup in the meantime until the patient is more stable clinically. Thank you for letting me to participate in your patient's case management. Further recommendation to follow. Jannie Ricks MD
--- NOTE | 2018-11-20 12:31 | PQF ---
PROVIDER RESPONSE TEXT: Etiology Cholelithiasis REVIEWER QUERY TEXT: Clarification of Clinical Diagnostic Findings Please clarify documentation or clinical relevance for the clinical / diagnostic findings or whether those are insignificant or unable to be further specified. ABDOMINAL PAIN ETIOLOGY ,IF KNOWN. The patient's Clinical Indicators include: ABDOMINAL PAIN FEBRIL PATIENT CT=DIVERTICULOSIS CHOLELITHIASIS,BPH. PLEASE CLARIFY AND DOCUMENT THE ETIOLOGY OF 'ABDOMINAL PAIN' IF KNOWN. Query created by: Alexandra Walker on 11/14/2018 11:16 AM Electronically signed by: Joshua Montgomery MD 11/20/2018 12:28 PM
== END 2018-11-12 16:13 | disposition home or self-care (01) | DRG 446 ==
LOC: C.ER 11:13 → C.9E 17:21 → C.3T 18:15 → C.9E 18:24 → C.3T 19:46 → OBSVTOIN 11-11 11:19
PROVIDERS: ADMIT Internal Medicine Pulmonary Disease; ATTEND Internal Medicine Pulmonary Disease
DX: K80.20 Calculus of gallbladder without cholecystitis without obstruction (principal); K27.9 Peptic ulcer, site unspecified, unspecified as acute or chronic, without hemorrhage or perforation; K57.90 Diverticulosis of intestine, part unspecified, without perforation or abscess without bleeding; N40.0 Benign prostatic hyperplasia without lower urinary tract symptoms; I10 Essential (primary) hypertension; H54.7 Unspecified visual loss; E87.6 Hypokalemia; R50.9 Fever, unspecified; E11.65 Type 2 diabetes mellitus with hyperglycemia